=== PATIENT | male | born 1985 | race Two or more races ===

== ENCOUNTER → 2024-01-14 | Outpatient (CLI) | payer MEDICAID ==
[~2024-01-14] MED LIST: ATIV1TAB10 PO; BENZ1TAB OR; BENZ1TAB5 PO; COGE1INJ IJ; DEPA1TAB3 PO; DEPA250T32 PO; DEPA500T2 PO; FOLI1TAB OR; LAMI25TA PO; LORA2TA PO; MIRT-88 PO; MIRT1TAB20 OR; MULTIVIT; NALT50TA4 PO; No Historical Meds; OLAN10TA2 PO; RISP25INJ IM; RISP2TAB12 OR; RISP3TAB16; RISP4TAB2 PO; RISP4TAB33 PO; RISPERDAL CONSTA; THIA100T OR; TRAZ-252 PO; TRAZ50TA2 PO; TRIL1TAB PO; ZYPR15TA3; ZYPR5TAB OR; [UNRECOGNIZED DRUG - CODE] IM; [UNRECOGNIZED DRUG - OTHER]; [UNRECOGNIZED DRUG - REMARK]; [UNRECOGNIZED DRUG - REMARK]; cogentin PO; haldol PO; haloperidol PO
== END ==
LOC: M OUTALCOH 12:54
PROVIDERS: ATTEND Psychiatry & Neurology Psychiatry
DX: F12.20 Cannabis dependence, uncomplicated (principal); F17.200 Nicotine dependence, unspecified, uncomplicated

== ENCOUNTER 2024-03-10 09:58 | Outpatient (RCR) | payer MEDICAID | END 2024-03-19 | LOC: M OUTALCOH 09:58 | PROVIDERS: ATTEND Psychiatry & Neurology Psychiatry | DX: F12.20 Cannabis dependence, uncomplicated (principal); F17.200 Nicotine dependence, unspecified, uncomplicated ==

== ENCOUNTER → 2024-03-30 | Outpatient (REF) | payer OTHER ==
[2024-03-30 14:17] LABS: BASO # 0.1 10^3/uL (0.0-0.2); BASO % 0.8 % (0.0-1.0); EOS # 0.3 10^3/uL (0.0-0.5); EOS % 4.3 % (0.0-3.0); HEMATOCRIT 47.4 % (42.0-52.0); HEMOGLOBIN 16.2 g/dl (13.5-17.5); LYMPH # 2.4 10^3/uL (1.5-5.0); LYMPH % 30.4 % (24.0-44.0); MEAN CORPUSCULAR HEMOGLOBIN 30.6 pg (27.0-33.0); MEAN CORPUSCULAR HGB CONC 34.2 g/dl (32.0-36.5); MEAN CORPUSCULAR VOLUME 89.4 fl (80.0-96.0); MONO # 0.5 10^3/uL (0.0-0.8); MONO % 6.8 % (2.0-8.0); NEUTROPHILS # 4.4 10^3/uL (1.5-8.5); NEUTROPHILS % 57.2 % (36.0-66.0); PLATELET COUNT, AUTOMATED 241 10^3/uL (150-450); WHITE BLOOD COUNT 7.8 10^3/uL (4.0-10.0)
[2024-03-30 14:24] LABS: ALKALINE PHOSPHATASE 78 U/L (46-116); ALT/SGPT 14 U/L (7.0-40); AST/SGOT 9 U/L (<34); BILIRUBIN,TOTAL 0.9 MG/DL (0.3-1.2); BLOOD UREA NITROGEN 10 MG/DL (9-23); CALCIUM LEVEL 8.9 MG/DL (8.5-10.1); CARBON DIOXIDE LEVEL 26 MMOL/L (20-31); CHLORIDE LEVEL 107 MMOL/L (98-107); CHOLESTEROL LEVEL 190 MG/DL (<200); CHOLESTEROL RISK RATIO 5.24 (<5); CREATININE FOR GFR 0.76 MG/DL (0.70-1.30); GLOMERULAR FILTRATION RATE > 60.0 (>60); GLUCOSE, FASTING 82 MG/DL (60-100); HDL CHOLESTEROL 36.2 MG/DL (>40); MAGNESIUM LEVEL 1.9 MG/DL (1.8-2.4); NON-HDL-C 153.8 MG/DL; POTASSIUM SERUM 4.4 MMOL/L (3.5-5.1); SODIUM LEVEL 139 MMOL/L (136-145); TOTAL PROTEIN 6.6 G/DL (5.7-8.2); TRIGLYCERIDES LEVEL 144 MG/DL (<150)
[2024-03-30 14:25] LABS: THYROID STIMULATING HORMONE 1.442 uIU/ML (0.55-4.78); TOTAL 25(OH) VITAMIN D 18.3 NG/ML (20.0-100.0)
[2024-03-30 14:30] LABS: HEMOGLOBIN A1c 5.1 % (4.0-6.0)
== END ==
LOC: M LAB REF 12:53
PROVIDERS: ATTEND Nurse Practitioner Family
DX: E66.3 Overweight (principal); E55.9 Vitamin D deficiency, unspecified

== ENCOUNTER 2024-04-14 10:55 | Outpatient (RCR) | payer MEDICAID | END 2024-04-19 | LOC: M OUTALCOH 10:55 | PROVIDERS: ATTEND Psychiatry & Neurology Psychiatry | DX: F12.20 Cannabis dependence, uncomplicated (principal); F17.200 Nicotine dependence, unspecified, uncomplicated ==

== ENCOUNTER 2024-04-14 11:00 | Outpatient (RCR) | payer MEDICAID | END 2024-04-19 | LOC: M OUTALCOH 11:00 | PROVIDERS: ATTEND Psychiatry & Neurology Psychiatry | DX: F12.20 Cannabis dependence, uncomplicated (principal); F17.200 Nicotine dependence, unspecified, uncomplicated ==

== ENCOUNTER 2024-05-10 11:00 | Outpatient (RCR) | payer MEDICAID | END 2024-05-20 | LOC: M OUTALCOH 11:00 | PROVIDERS: ATTEND Psychiatry & Neurology Psychiatry | DX: F12.20 Cannabis dependence, uncomplicated (principal); F17.200 Nicotine dependence, unspecified, uncomplicated ==

== ENCOUNTER 2024-05-31 10:35 | Outpatient (RCR) | payer MEDICAID | END 2024-06-19 | LOC: M OUTALCOH 10:35 | PROVIDERS: ATTEND Psychiatry & Neurology Psychiatry | DX: F12.20 Cannabis dependence, uncomplicated (principal); F17.200 Nicotine dependence, unspecified, uncomplicated ==

== ENCOUNTER 2024-06-28 11:00 | Outpatient (RCR) | payer MEDICAID | END 2024-07-20 | LOC: M OUTALCOH 11:00 | PROVIDERS: ATTEND Psychiatry & Neurology Psychiatry | DX: F12.20 Cannabis dependence, uncomplicated (principal); F17.200 Nicotine dependence, unspecified, uncomplicated ==

== ENCOUNTER 2024-08-09 08:58 | Outpatient (RCR) | payer MEDICAID | END 2024-08-19 | LOC: M OUTALCOH 08:58 | PROVIDERS: ATTEND Psychiatry & Neurology Psychiatry | DX: F12.20 Cannabis dependence, uncomplicated (principal); F17.200 Nicotine dependence, unspecified, uncomplicated ==

== ENCOUNTER 2024-09-06 10:40 | Outpatient (RCR) | payer MEDICAID | END 2024-09-19 | LOC: M OUTALCOH 10:40 | PROVIDERS: ATTEND Psychiatry & Neurology Psychiatry | DX: F12.20 Cannabis dependence, uncomplicated (principal); F17.200 Nicotine dependence, unspecified, uncomplicated ==

== ENCOUNTER → 2024-10-20 | Outpatient (RCR) | payer MEDICAID | LOC: M OUTALCOH 09-29 11:11 | PROVIDERS: ATTEND Psychiatry & Neurology Psychiatry | DX: F12.20 Cannabis dependence, uncomplicated (principal); F17.200 Nicotine dependence, unspecified, uncomplicated ==

== ENCOUNTER 2024-11-10 10:42 | Outpatient (RCR) | payer MEDICAID | END 2024-11-17 | LOC: M OUTALCOH 10:42 | PROVIDERS: ATTEND Psychiatry & Neurology Psychiatry | DX: F12.20 Cannabis dependence, uncomplicated (principal); F17.200 Nicotine dependence, unspecified, uncomplicated ==

== ENCOUNTER 2024-12-08 11:06 | Outpatient (RCR) | payer MEDICAID | END 2024-12-18 | LOC: M OUTALCOH 11:06 | PROVIDERS: ATTEND Psychiatry & Neurology Psychiatry | DX: F12.20 Cannabis dependence, uncomplicated (principal); F17.200 Nicotine dependence, unspecified, uncomplicated ==

== ENCOUNTER 2024-12-15 11:00 | Outpatient (RCR) | payer MEDICAID | END 2024-12-18 | LOC: M OUTALCOH 11:00 | PROVIDERS: ATTEND Psychiatry & Neurology Psychiatry | DX: F12.20 Cannabis dependence, uncomplicated (principal); F17.200 Nicotine dependence, unspecified, uncomplicated ==

== ENCOUNTER → 2025-06-08 | Outpatient (CLI) | payer MEDICAID ==
[~2025-06-08] MED LIST changes: -DEPA250T32 PO; +DIVA-65 PO
== END ==
LOC: M OUTALCOH 11:56
PROVIDERS: ATTEND Psychiatry & Neurology Psychiatry
DX: F15.20 Other stimulant dependence, uncomplicated (principal); F12.20 Cannabis dependence, uncomplicated; F17.200 Nicotine dependence, unspecified, uncomplicated

== ENCOUNTER 2025-06-15 08:50 | Outpatient (RCR) | payer MEDICAID | END 2025-06-19 | LOC: M OUTALCOH 08:50 | PROVIDERS: ATTEND Psychiatry & Neurology Psychiatry | DX: F15.20 Other stimulant dependence, uncomplicated (principal); F12.20 Cannabis dependence, uncomplicated; F17.200 Nicotine dependence, unspecified, uncomplicated ==

== ENCOUNTER → 2025-07-20 | Outpatient (RCR) | payer MEDICAID | LOC: M OUTALCOH 06-20 08:55 | PROVIDERS: ATTEND Psychiatry & Neurology Psychiatry | DX: F15.20 Other stimulant dependence, uncomplicated (principal); F12.20 Cannabis dependence, uncomplicated; F17.200 Nicotine dependence, unspecified, uncomplicated ==

== ENCOUNTER 2025-08-10 08:46 | Outpatient (RCR) | payer MEDICAID | END 2025-08-19 | LOC: M OUTALCOH 08:46 | PROVIDERS: ATTEND Psychiatry & Neurology Psychiatry | DX: F15.20 Other stimulant dependence, uncomplicated (principal); F12.20 Cannabis dependence, uncomplicated; F17.200 Nicotine dependence, unspecified, uncomplicated ==

== ENCOUNTER 2025-09-07 10:57 | Outpatient (RCR) | payer MEDICAID | END 2025-09-19 | LOC: M OUTALCOH 10:57 | PROVIDERS: ATTEND Psychiatry & Neurology Psychiatry | DX: F15.20 Other stimulant dependence, uncomplicated (principal); F12.20 Cannabis dependence, uncomplicated; F17.200 Nicotine dependence, unspecified, uncomplicated ==